=== PATIENT | female | born 1995 | race American Indian/Alaskan Native ===

== ENCOUNTER 2018-01-24 15:13 | Emergency (ER) | payer MEDICAID ==
[2018-01-24 15:23] VITALS: BP 122/66
--- NOTE | 2018-01-24 17:09 | Emergency Department Report ---
Blank Doc - Documentation Documentation: Patient has left sided face pain headache and numbness of been going on for the last 2 days. Patient states it's hard to blink her left side of her face and to move her lip. Patient also says that this occurred after she woke up. 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
[2018-01-24 18:24] LABS: HCG Qualitative,Urine Negative (Negative)
--- NOTE | 2018-01-24 19:28 | Cat Scan Report ---
FINAL REPORT EXAM: CT HEAD/BRAIN WO CON HISTORY: left facial numbness TECHNIQUE: Standard unenhanced CT of the head at 5.0 millimeter axial increments. PRIORS: None. FINDINGS: The ventricular system is normal in size and configuration. There is no evidence for parenchymal volume loss. There is no evidence for mass lesion, mass effect, midline shift, acute intracranial hemorrhage, or acute ischemia/ infarction. Visualized paranasal sinuses are clear. IMPRESSION: Negative CT of the head. No acute intracranial process noted.
[2018-01-24] MEDS ORDERED: DELTASONE PO ONE (20:02)
--- NOTE | 2018-01-24 20:07 | Emergency Department Report ---
ED General Adult HPI - General Chief complaint: Neuro Symptoms/Deficit Stated complaint: LEFT SIDE FACIAL NUMBNESS Time Seen by Provider: 01/24/18 20:01 Source: patient Mode of arrival: Ambulatory Limitations: No Limitations - History of Present Illness Initial comments: Patient is a 23-year-old female no significant past medical history who presents with left facial numbness that occurred this morning. Patient states that when she woke up this morning her left face she'll numbness occurred. Nothing makes it better or worse. Patient denies being any pain she denies any trauma to the area. Patient has no neurologic defects other than her left facial numbness. Patient states that sometimes it's hard for her to wink her left eye. No headache no nausea no vomiting. - Related Data Previous Rx's Medication Instructions Recorded Last Taken Type Ibuprofen [Motrin] 800 mg PO Q8HR PRN #30 tablet 03/31/16 Unknown Rx traMADol [Ultram 50 MG tab] 50 mg PO Q6HR PRN #20 tablet 03/31/16 Unknown Rx predniSONE [Deltasone] 20 mg PO BID #25 tab 01/24/18 Unknown Rx Allergies Allergy/AdvReac Type Severity Reaction Status Date / Time No Known Allergies Allergy Verified 03/30/16 23:25 ED Review of Systems ROS: Stated complaint: LEFT SIDE FACIAL NUMBNESS Other details as noted in HPI Constitutional: denies: chills, fever Eyes: denies: eye pain, eye discharge, vision change ENT: denies: ear pain, throat pain Respiratory: denies: cough, shortness of breath, wheezing Cardiovascular: denies: chest pain, palpitations Endocrine: no symptoms reported Gastrointestinal: denies: abdominal pain, nausea, diarrhea Genitourinary: denies: urgency, dysuria, discharge Musculoskeletal: denies: back pain, joint swelling, arthralgia Skin: denies: rash, lesions Neurological: paresthesias. denies: headache, weakness Psychiatric: denies: anxiety, depression Hematological/Lymphatic: denies: easy bleeding, easy bruising ED Past Medical Hx - Past Medical History Previous Medical History?: No - Surgical History Additional Surgical History: face repair - Social History Smoking Status: Current Every Day Smoker Substance Use Type: None - Medications Home Medications: Home Medications Medication Instructions Recorded Confirmed Last Taken Type Ibuprofen [Motrin] 800 mg PO Q8HR PRN #30 tablet 03/31/16 Unknown Rx traMADol [Ultram 50 MG tab] 50 mg PO Q6HR PRN #20 tablet 03/31/16 Unknown Rx predniSONE [Deltasone] 20 mg PO BID #25 tab 01/24/18 Unknown Rx ED Physical Exam - General Limitations: No Limitations General appearance: alert, in no apparent distress - Head Head exam: Present: atraumatic, normocephalic - Eye Eye exam: Present: normal appearance - ENT ENT exam: Present: mucous membranes moist - Neck Neck exam: Present: normal inspection - Respiratory Respiratory exam: Present: normal lung sounds bilaterally. Absent: respiratory distress - Cardiovascular Cardiovascular Exam: Present: regular rate, normal rhythm. Absent: systolic murmur, diastolic murmur, rubs, gallop - GI/Abdominal GI/Abdominal exam: Present: soft, normal bowel sounds - Extremities Exam Extremities exam: Present: normal inspection - Back Exam Back exam: Present: normal inspection - Neurological Exam Neurological exam: Present: alert, oriented X3, other (CN 7 deficit on left portion of face. ) - Psychiatric Psychiatric exam: Present: normal affect, normal mood - Skin Skin exam: Present: warm, dry, intact, normal color. Absent: rash ED Course Vital Signs 01/24/18 15:19 Temperature 98.1 F Pulse Rate 110 H Respiratory 16 Rate Blood Pressure 122/66 O2 Sat by Pulse 100 Oximetry ED Medical Decision Making - Radiology Data Radiology results: report reviewed, image reviewed CT Head: Shows no acute intracranial process. - Medical Decision Making Cdx: Potter's palsy ddx: Brain tumor, hemorrhagic stroke I will get ct scan of head and I will give patient oral prednisone. Critical care attestation.: If time is entered above; I have spent that time in minutes in the direct care of this critically ill patient, excluding procedure time. ED Disposition Clinical Impression: Potter's palsy Disposition: DC-01 TO HOME OR SELFCARE Is pt being admited?: No Does the pt Need Aspirin: No Condition: Stable Instructions: Potter Palsy (ED) Prescriptions: predniSONE [Deltasone] 20 mg PO BID #25 tab Referrals: BRIGITTE BUTLER MD [Staff Physician] - 3-5 Days
== END 2018-01-24 20:17 | disposition home or self-care (01) ==
LOC: ED 15:13
DX: G51.0 Bell's palsy (principal); F17.200 Nicotine dependence, unspecified, uncomplicated
CPT/HCPCS: 70450; 81025; 99284; J7512